=== PATIENT | male | born 1970 | race Caucasian/White ===

== ENCOUNTER 2023-11-28 12:59 | Inpatient (IN) | payer OTHER ==
[~2023-11-28] VITALS: Ht 182.9 cm; Wt 90.7 kg
[2023-11-28] MEDS ORDERED: BISA10SU11 RC (13:22)
[2023-11-28] MEDS ORDERED: LORA-259 PO (13:22)
[2023-11-28] MEDS ORDERED: FLUT12AE IH (13:22)
[2023-11-28] MEDS ORDERED: ACET325C7 PO (13:22)
[2023-11-28] MEDS ORDERED: ARGININE PO (13:22)
[2023-11-28] MEDS ORDERED: MAGN400O6 PO (13:23)
[2023-11-28] MEDS ORDERED: GABA-536 PO (13:23)
[2023-11-28] MEDS ORDERED: METH-806 PO (13:23)
[2023-11-28] MEDS ORDERED: METH-817 PO (13:23)
[2023-11-28] MEDS ORDERED: LIDOCAINE PATCH 5% TD (13:23)
[2023-11-28] MEDS ORDERED: IBUP-1953 PO (13:23)
[2023-11-28] MEDS ORDERED: CRAN450T9 PO (13:23)
[2023-11-28] MEDS ORDERED: MULT-594 PO (13:23)
[2023-11-28] MEDS ORDERED: HYDR-4209 PO (13:23)
[2023-11-28] MEDS ORDERED: NA P133E RC (13:23)
[2023-11-28] MEDS ORDERED: ASCO500C6 PO (13:23)
[2023-11-28] MEDS ORDERED: ONDA4TAB5 PO (13:23)
[2023-11-28] MEDS ORDERED: DOCU100C36 PO (13:23)
[2023-11-28] MEDS ORDERED: HYDROMORPHONE 1 MG/1 ML DISP.SYRIN ONE (13:27)
[2023-11-28] MEDS ORDERED: ONDANSETRON 4 MG/2 ML VIAL ONE (13:27)
[2023-11-28] MEDS: HYDROMORPHONE 1 MG/1 ML DISP.SYRIN IV ONE (13:45)
[2023-11-28] MEDS: IV NORMAL SALINE 1000 ML BAG IV ONE (13:45)
[2023-11-28] MEDS: ONDANSETRON 4 MG/2 ML VIAL IV ONE (13:45)
[2023-11-28 14:14] LABS: BASOPHILS % (AUTO) 0.4 % (0.0-2.0); EOSINOPHILS # (AUTO) 0.2 K/uL (0.0-0.7); EOSINOPHILS % (AUTO) 1.8 % (0.0-7.0); HEMATOCRIT 37.1 % (36.7-47.1); HEMOGLOBIN 12.6 g/dL (12.5-16.3); LYMPHOCYTES # (AUTO) 1.2 K/uL (0.8-4.8); LYMPHOCYTES % (AUTO) 10.4 % (20.5-51.5); MEAN CORPUSCULAR HEMOGLOBIN 31.5 uug (23.8-33.4); MEAN CORPUSCULAR HGB CONC 34 g/dL (32.5-36.3); MEAN CORPUSCULAR VOLUME 92.4 fL (73.0-96.2); MONOCYTES # (AUTO) 0.8 K/uL (0.1-1.30); MONOCYTES % (AUTO) 6.7 % (0.0-11.0); NEUTROPHILS # (AUTO) 9.5 K/uL (1.8-8.9); NEUTROPHILS % (AUTO) 80.7 % (38.5-71.5); PLATELET COUNT (AUTO) 230 K/uL (152-348); RED BLOOD CELL COUNT(AUTO) 4.02 MIL/uL (4.06-5.63); RED CELL DISTRIBUTION WIDTH 13.1 % (12.1-16.2); WHITE BLOOD COUNT (AUTO) 11.8 K/uL (3.6-10.2)
[2023-11-28 14:29] LABS: ALANINE AMINOTRANSFERASE 15 U/L (16-63); ALBUMIN 3.5 g/dL (3.4-5.0); ALKALINE PHOSPHATASE 73 U/L (50-136); ASPARTATE AMINOTRANSFERASE 13 U/L (15-37); BILIRUBIN,DIRECT 0.1 mg/dL (0.0-0.2); BILIRUBIN,TOTAL 0.4 mg/dL (0.2-1.0); CALCIUM 9.1 mg/dL (8.5-10.1); CARBON DIOXIDE 32 mmol/L (21-32); CHLORIDE 105 mmol/L (98-107); CREATININE 0.6 mg/dL (0.6-1.3); GLUCOSE 103 mg/dL (74-106); LIPASE 15 U/L (16-77); POTASSIUM 3.9 mmol/L (3.5-5.1); SODIUM SERUM 141 mmol/L (136-145); TOTAL PROTEIN, SERUM 7.3 g/dL (6.4-8.2); UREA NITROGEN, BLOOD 20 mg/dL (7-18)
[2023-11-28 14:39] LABS: DIFFERENTIAL COMMENT 1
[2023-11-28] MEDS ORDERED: LORAZEPAM 1 MG TABLET PO PRN (16:00)
[2023-11-28] MEDS ORDERED: HYDROCODONE/APAP 5-325MG TABLET PO PRN (16:00)
[2023-11-28] MEDS ORDERED: BISACODYL 10 MG SUPP.RECT RC PRN (16:00)
[2023-11-28] MEDS ORDERED: Medication Not On Formulary EA (Acetaminophen (Tylenol) 650 MG) PO SCH (16:00)
[2023-11-28 16:22] LABS: *BILIRUBIN,URIN NEGATIVE (NEGATIVE); *BLOOD, URINE 2+ (NEGATIVE); *CLARITY,URINE CLEAR (CLEAR); *COLOR,URINE YELLOW (YELLOW); *KETONES,URINE NEGATIVE (NEGATIVE); *PROTEIN,URINE NEGATIVE (NEGATIVE); *UROBILINOGEN,URINE 0.2 E.U./dl (NORMAL); LEUKOCYTE ESTERASE ,URINE 1+ (NEGATIVE); NITRITE, URINE POSITIVE (NEGATIVE); UGLUCOSE NEGATIVE (NEGATIVE)
[2023-11-28 16:35] LABS: BACTERIA,URINE MANY /HPF (NONE SEEN); RBC,URINE 0-3 /HPF (0-3); SQUAMOUS EPITHELIAL CELL,UR FEW /HPF (NONE SEEN)
[2023-11-28 16:36] LABS: CALCIUM OXALATE CRYSTALS,UR RARE /HPF (NONE SEEN)
[2023-11-28] MEDS ORDERED: ACETAMINOPHEN 650 MG/20.3 ML LIQUID UDC PO PRN (17:00)
[2023-11-28] MEDS ORDERED: ARGININE PO SCH (17:00)
[2023-11-28] MEDS: METHOCARBAMOL 500 MG TABLET PO SCH (17:24)
[2023-11-28] MEDS: HYDROMORPHONE 1 MG/1 ML DISP.SYRIN IV PRN (17:24)
[2023-11-28] MEDS: METHADONE HCL 10 MG TABLET PO SCH (17:24)
[2023-11-28] MEDS: DOCUSATE SODIUM 100 MG CAPSULE PO SCH (17:24)
[2023-11-28] MEDS: GABAPENTIN 400 MG CAPSULE PO SCH (17:26)
[2023-11-28] MEDS: IBUPROFEN 400 MG TABLET PO PRN (19:50)
[2023-11-28 20:00] VITALS: BP 134/71; TEMP 98.7; O2SAT 97
[2023-11-28] MEDS ORDERED: CEFTRIAXONE /D5W 50ML IVPB **ER PYXIS IV ONE (21:13)
[2023-11-28] MEDS: CEFTRIAXONE 1 G in IV DEXTROSE 5% 50 ML IV SCH (21:17)
[2023-11-28] MEDS: HYDROMORPHONE 2 MG/1 ML DISP.SYRIN IV PRN (22:34)
[2023-11-29 06:00] VITALS: BP 135/75; TEMP 98.7; O2SAT 98
[2023-11-29] MEDS: PANTOPRAZOLE SODIUM 40 MG TABLET.DR PO SCH (06:10)
[2023-11-29 06:48] LABS: BASOPHILS % (AUTO) 0.4 % (0.0-2.0); EOSINOPHILS # (AUTO) 0.3 K/uL (0.0-0.7); EOSINOPHILS % (AUTO) 2.9 % (0.0-7.0); HEMATOCRIT 34.9 % (36.7-47.1); HEMOGLOBIN 12.2 g/dL (12.5-16.3); LYMPHOCYTES # (AUTO) 2.2 K/uL (0.8-4.8); LYMPHOCYTES % (AUTO) 21.2 % (20.5-51.5); MEAN CORPUSCULAR HEMOGLOBIN 32.1 uug (23.8-33.4); MEAN CORPUSCULAR HGB CONC 35 g/dL (32.5-36.3); MEAN CORPUSCULAR VOLUME 91.7 fL (73.0-96.2); MONOCYTES # (AUTO) 0.8 K/uL (0.1-1.30); MONOCYTES % (AUTO) 7.5 % (0.0-11.0); NEUTROPHILS # (AUTO) 6.9 K/uL (1.8-8.9); PLATELET COUNT (AUTO) 225 K/uL (152-348); RED BLOOD CELL COUNT(AUTO) 3.81 MIL/uL (4.06-5.63); WHITE BLOOD COUNT (AUTO) 10.2 K/uL (3.6-10.2)
[2023-11-29 06:56] LABS: DIFFERENTIAL COMMENT 1
[2023-11-29 07:05] LABS: IRON, SERUM 39 ug/dL (50-175)
[2023-11-29 07:37] LABS: CARBON DIOXIDE 32 mmol/L (21-32); CHLORIDE 106 mmol/L (98-107); CHOLESTEROL 94 mg/dL (<200); CREATININE 0.6 mg/dL (0.6-1.3); GLUCOSE 109 mg/dL (74-106); HDL CHOLESTEROL 37 mg/dL (40-60); MAGNESIUM 1.9 mg/dL (1.8-2.4); PHOSPHOROUS 3.9 mg/dL (2.5-4.9); POTASSIUM 3.6 mmol/L (3.5-5.1); SODIUM SERUM 144 mmol/L (136-145); TRIGLYCERIDES 58 MG/DL (30-150); UREA NITROGEN, BLOOD 14 mg/dL (7-18)
[2023-11-29 08:00] VITALS: BP 119/59; TEMP 98.1; O2SAT 98
[2023-11-29 08:06] LABS: CALCIUM 8.8 mg/dL (8.5-10.1)
[2023-11-29 08:38] LABS: THYROID STIMULATING HORMONE 1.371 mIU/mL (0.358-3.740)
[2023-11-29 08:43] VITALS: BP 115/70; TEMP 98.7; O2SAT 96
[2023-11-29] MEDS: FLUTICASONE/VILANTEROL 1 EACH BLST.W.DEV INH SCH (08:48)
[2023-11-29] MEDS: MULTIVITAMINS,THERAPEUTIC TABLET PO SCH (08:49)
[2023-11-29] MEDS: ASCORBIC ACID 500 MG TABLET PO SCH (08:49)
[2023-11-29] MEDS: ARGININE/GLUTAMINE/CALCIUM BMB 1 EACH POWD.PACK PO SCH (08:54)
[2023-11-29] MEDS ORDERED: Medication Not On Formulary EA (Multivitamins (Multivitamin) 1 EACH) PO SCH (09:00)
[2023-11-29] MEDS ORDERED: Medication Not On Formulary EA (Ascorbic Acid (Vitamin C CAPSULE) 500 MG) PO SCH (09:00)
[2023-11-29] MEDS: HYDROMORPHONE 2 MG/1 ML DISP.SYRIN IV PRN ×2 (10:31→15:38)
[2023-11-29 15:20] VITALS: BP 110/62; TEMP 98.7; O2SAT 96
[2023-11-29 18:37] VITALS: BP 109/69; TEMP 98; O2SAT 99
[2023-11-29 19:22] VITALS: BP 108/50; TEMP 98.1; O2SAT 91
[2023-11-29] MEDS: ONDANSETRON 4 MG/2 ML VIAL IV PRN (23:22)
[2023-11-30] MEDS: FLEET ENEMA 133 ML BOTTLE RC PRN (00:17)
[2023-11-30 06:00] VITALS: BP 123/69; TEMP 99.4; O2SAT 100
[2023-11-30] MEDS: MAGNESIUM HYDROXIDE 30 ML LIQUID UDC PO SCH (08:30)
[2023-11-30 11:58] VITALS: BP 107/57; TEMP 98.6; O2SAT 100
[2023-11-30 12:00] VITALS: BP 107/57; TEMP 98.6; O2SAT 99
[2023-11-30] MEDS ORDERED: HYDR4TAB4 PO (14:12)
[2023-11-30] MEDS ORDERED: CEPH500C2 PO (14:12)
== END 2023-11-30 16:05 | DRG 463 ==
LOC: ER 13:03 → MEDSURG3 14:30
PROVIDERS: ADMIT Internal Medicine; ATTEND Internal Medicine
DX: N39.0 Urinary tract infection, site not specified (principal); G82.20 Paraplegia, unspecified; N13.8 Other obstructive and reflux uropathy; G89.4 Chronic pain syndrome; N40.1 Benign prostatic hyperplasia with lower urinary tract symptoms; R07.9 Chest pain, unspecified; S24.103S Unspecified injury at T7-T10 level of thoracic spinal cord, sequela; X95.9XXS Assault by unspecified firearm discharge, sequela; G62.9 Polyneuropathy, unspecified; Z86.73 Personal history of transient ischemic attack (TIA), and cerebral infarction without residual deficits; Z87.891 Personal history of nicotine dependence; Z85.048 Personal history of other malignant neoplasm of rectum, rectosigmoid junction, and anus; N31.9 Neuromuscular dysfunction of bladder, unspecified; F11.20 Opioid dependence, uncomplicated; Z90.49 Acquired absence of other specified parts of digestive tract; Z86.59 Personal history of other mental and behavioral disorders; G40.909 Epilepsy, unspecified, not intractable, without status epilepticus; Z93.6 Other artificial openings of urinary tract status
CPT/HCPCS: 36415; 71045; 72131; 83550; 83690; 83735; 84100; 84443; 85025; 93005; A4606; A4663; A6209; A6213; G0378; J0696; J1170; J2405; J7040

== ENCOUNTER 2025-02-03 17:18 | Inpatient (IN) | payer OTHER ==
[~2025-02-03] VITALS: Ht 182.9 cm; Wt 77.1 kg
[~2025-02-03 17:18] MED LIST: ACET325C7 PO; ARGININE PO; ASCO500C6 PO; BISA10SU11 RC; CEPH500C2 PO; CRAN450T9 PO; DOCU100C36 PO; FLUT12AE IH; GABA-536 PO; HYDR4TAB4 PO; IBUP-1953 PO; LIDOCAINE PATCH 5% TD; LORA-259 PO; MAGN400O6 PO; METH-806 PO; METH-817 PO; MULT-594 PO; NA P133E RC; ONDA4TAB5 PO
[2025-02-03] MEDS: IV NORMAL SALINE 1000 ML BAG IV ONE (17:30)
[2025-02-03 17:49] LABS: *BILIRUBIN,URIN NEGATIVE (NEGATIVE); *BLOOD, URINE NEGATIVE (NEGATIVE); *CLARITY,URINE CLEAR (CLEAR); *COLOR,URINE YELLOW (YELLOW); *KETONES,URINE NEGATIVE (NEGATIVE); *PROTEIN,URINE NEGATIVE (NEGATIVE); LEUKOCYTE ESTERASE ,URINE 1+ (NEGATIVE); NITRITE, URINE POSITIVE (NEGATIVE); PH,URINE 5.5 (5.0-8.0); UGLUCOSE NEGATIVE (NEGATIVE)
[2025-02-03 17:52] LABS: BACTERIA,URINE FEW /HPF (NONE SEEN); RBC,URINE 0-3 /HPF (0-3)
[2025-02-03 17:55] LABS: CALCIUM 9.5 mg/dL (8.5-10.1); CARBON DIOXIDE 12 mmol/L (21-32); CHLORIDE 105 mmol/L (98-107); CREATININE 2.2 mg/dL (0.6-1.3); GLUCOSE 327 mg/dL (74-106); SODIUM SERUM 144 mmol/L (136-145); UREA NITROGEN, BLOOD 32 mg/dL (7-18)
[2025-02-03 18:01] LABS: BASOPHILS # (AUTO) 0.1 K/UL (0.0-0.2); BASOPHILS % (AUTO) 0.3 % (0.0-2.0); EOSINOPHILS # (AUTO) 0.1 K/uL (0.0-0.7); EOSINOPHILS % (AUTO) 0.2 % (0.0-7.0); HEMATOCRIT 43.2 % (36.7-47.1); HEMOGLOBIN 13.6 g/dL (12.5-16.3); LYMPHOCYTES # (AUTO) 2.4 K/uL (0.8-4.8); MEAN CORPUSCULAR HEMOGLOBIN 30.9 uug (23.8-33.4); MEAN CORPUSCULAR HGB CONC 32 g/dL (32.5-36.3); MEAN CORPUSCULAR VOLUME 97.9 fL (73.0-96.2); MONOCYTES # (AUTO) 2.1 K/uL (0.1-1.30); MONOCYTES % (AUTO) 7.1 % (0.0-11.0); NEUTROPHILS # (AUTO) 24.7 K/uL (1.8-8.9); NEUTROPHILS % (AUTO) 84.4 % (38.5-71.5); PLATELET COUNT (AUTO) 163 K/uL (152-348); RED BLOOD CELL COUNT(AUTO) 4.41 MIL/uL (4.06-5.63); RED CELL DISTRIBUTION WIDTH 14.5 % (12.1-16.2); WHITE BLOOD COUNT (AUTO) 29.3 K/uL (3.6-10.2)
[2025-02-03 18:08] LABS: POTASSIUM 2.5 mmol/L (3.5-5.1)
[2025-02-03 18:13] LABS: ALANINE AMINOTRANSFERASE 32 U/L (16-63); ALBUMIN 3.3 g/dL (3.4-5.0); ALKALINE PHOSPHATASE 69 U/L (50-136); ASPARTATE AMINOTRANSFERASE 79 U/L (15-37); BILIRUBIN,DIRECT 0.1 mg/dL (0.0-0.2); BILIRUBIN,TOTAL 0.6 mg/dL (0.2-1.0); TOTAL PROTEIN, SERUM 7.2 g/dL (6.4-8.2)
[2025-02-03] MEDS: POTASSIUM BICARBONATE/CIT AC 25 MEQ TABLET.EFF MC ONE (18:15)
[2025-02-03] MEDS: POTASSIUM CHLORIDE 50 ML IV SCH (18:15)
[2025-02-03] MEDS ORDERED: SUCCINYLCHOLINE CHLORIDE 200 MG/10 ML VIAL ONE (18:20)
[2025-02-03] MEDS ORDERED: EPINEPHRINE 1:10,000 1 MG/10 ML DISP.SYRIN ONE ×2 (18:20→23:18)
[2025-02-03 18:21] LABS: DIFFERENTIAL COMMENT 1
[2025-02-03] MEDS ORDERED: POTASSIUM BICARBONATE/CIT AC 25 MEQ TABLET.EFF ONE (18:22)
[2025-02-03] MEDS: MAGNESIUM SULFATE/D5W 100 ML IV SCH (18:25)
[2025-02-03] MEDS ORDERED: MAGNESIUM SULFATE/D5W 300 ML ONE (18:27)
[2025-02-03] MEDS ORDERED: POTASSIUM CHLORIDE 50 ML ONE (18:36)
[2025-02-03 18:39] LABS: ABG HCO3 3.5 mmol/L (21.0-28.0); ABG PCO2 19.9 mmHg (35.0-48.0); ABG PH 6.862 (7.350-7.450); ABG PO2 116.4 mmHg (83.0-108.0); ABG SITE RIGHT FEMORAL; ABG TOTAL HEMOGLOBIN 12.7 G/dL (13.5-17.5); AaDO2 94.1 mmHg; COHb 0.5 % (0.5-1.5); MetHb 0.3 % (0.0-1.5); O2Hb 94.3 % (94.0-98.0); VT, ABG 450 mL
[2025-02-03] MEDS: NOREPINEPHRINE 8MG/NS 250ML 250 ML IV PRN (18:49)
[2025-02-03] MEDS ORDERED: NOREPINEPHRINE 8MG/NS 250ML 250 ML IV ONE ×3 (20:04→23:02)
[2025-02-03] MEDS ORDERED: CEFTRIAXONE /D5W 50ML IVPB **ER PYXIS IV ONE (20:19)
[2025-02-03] MEDS ORDERED: ONDANSETRON 4 MG/2 ML VIAL IV PRN (20:30)
[2025-02-03] MEDS ORDERED: REMEDY ESSENTIAL ZINC PASTE 113 GM TP PRN (20:30)
[2025-02-03] MEDS ORDERED: ACETAMINOPHEN 650 MG SUPP.RECT RC PRN (20:30)
[2025-02-03] MEDS: CEFTRIAXONE 1 G in IV DEXTROSE 5% 50 ML IV ONE (20:30)
[2025-02-03 20:40] LABS: CALCIUM 8.9 mg/dL (8.5-10.1); CREATININE 2.1 mg/dL (0.6-1.3); POTASSIUM 4.2 mmol/L (3.5-5.1)
[2025-02-03] MEDS ORDERED: ALBUTEROL SULFATE 2.5 MG/3 ML NEBU NEB PRN (20:45)
[2025-02-03] MEDS ORDERED: IPRATROPIUM BROMIDE 0.5 MG/2.5 ML NEBU NEB PRN (20:45)
[2025-02-03] MEDS ORDERED: SODIUM BICARBONATE 8.4% 50 MEQ/50 ML DISP.SYRIN IV ONE (20:53)
[2025-02-03] MEDS: SODIUM BICARBONATE 8.4% 50 MEQ in IV 1/2NS 1000 ML 1,000 ML IV SCH (21:00)
[2025-02-03] MEDS: HEPARIN SODIUM,PORCINE 5,000 UNITS/ML VIAL SQ SCH (21:00)
[2025-02-03] MEDS ORDERED: PHENYLEPHRINE 10 MG/1 ML VIAL ONE (21:38)
[2025-02-03] MEDS: PHENYLEPHRINE IV 50 MG in IV NORMAL SALINE 245 ML IV PRN (21:45)
[2025-02-03] MEDS ORDERED: CEFEPIME HCL 1 G in IV DEXTROSE 5% 50 ML IV SCH (22:00)
[2025-02-03] MEDS ORDERED: CEFEPIME HCL 1 G VIAL ONE (22:00)
[2025-02-03] MEDS: CEFEPIME HCL 1 G in IV DEXTROSE 5% 50 ML IV SCH (22:15)
[2025-02-03] MEDS ORDERED: VANCOMYCIN IV 200 ML ONE (22:47)
[2025-02-03] MEDS: VANCOMYCIN IV 1,000 MG in IV NORMAL SALINE 250 ML IV ONE (22:50)
[2025-02-03] MEDS ORDERED: EPINEPHRINE-PF 1:1000 1 MG/ML AMPUL/VIAL ONE (23:25)
[2025-02-03] MEDS: EPINEPHRINE 5 MG in IV NORMAL SALINE 245 ML IV PRN (23:30)
[2025-02-04] VITALS (33 sets, daily range): BP systolic 54–179; BP diastolic 31–125; TEMP 98–98.2; O2SAT 80–100
[2025-02-04] MEDS ORDERED: PHENYLEPHRINE 10 MG/1 ML VIAL ONE ×3 (00:40→07:18)
[2025-02-04] MEDS ORDERED: NOREPINEPHRINE 8MG/NS 250ML 250 ML IV ONE ×5 (00:52→07:22)
[2025-02-04] MEDS ORDERED: EPINEPHRINE-PF 1:1000 1 MG/ML AMPUL/VIAL ONE ×4 (01:02→03:41)
[2025-02-04] MEDS ORDERED: EPINEPHRINE 1:10,000 1 MG/10 ML DISP.SYRIN ONE (01:24)
[2025-02-04] MEDS ORDERED: SODIUM BICARBONATE 8.4% 50 MEQ/50 ML DISP.SYRIN IV ONE (01:29)
[2025-02-04] MEDS ORDERED: VASOPRESSIN 20 UNIT/ML VIAL ONE (02:09)
[2025-02-04] MEDS: HYDROCORTISONE SOD SUCCINATE 100 MG/2 ML VIAL IV ONE (02:20)
[2025-02-04] MEDS: VASOPRESSIN 40 UNIT in IV NORMAL SALINE 40 ML IV PRN (02:38)
[2025-02-04] MEDS: SODIUM BICARBONATE 8.4% 150 MEQ in IV D5W 1000ML 1,000 ML IV PRN (02:40)
[2025-02-04] MEDS ORDERED: EPINEPHRINE 10 MG in IV NORMAL SALINE 240 ML IV PRN (03:30)
[2025-02-04 05:49] LABS: ABG BASE EXCESS -19.8 mmol/L (-2.0-3.0); ABG HCO3 8.5 mmol/L (21.0-28.0); ABG PCO2 28.1 mmHg (35.0-48.0); ABG PH 7.098 (7.350-7.450); ABG SITE LEFT RADIAL; ABG TOTAL HEMOGLOBIN 13.2 G/dL (13.5-17.5); COHb 0.4 % (0.5-1.5); MetHb 0.3 % (0.0-1.5); O2Hb 98.7 % (94.0-98.0); VT, ABG 450 mL
[2025-02-04] MEDS ORDERED: CEFEPIME HCL 1 G VIAL ONE (07:28)
[2025-02-04] MEDS ORDERED: PHENYLEPHRINE IV 100 MG in IV NORMAL SALINE 240 ML IV PRN (07:30)
[2025-02-04] MEDS ORDERED: NOREPINEPHRINE BITARTRATE 32 MG in IV NORMAL SALINE 218 ML IV PRN (07:30)
[2025-02-04] MEDS: PANTOPRAZOLE SODIUM 40 MG VIAL IV SCH (09:00)
[2025-02-04 09:07] LABS: BASOPHILS % (AUTO) 0.2 % (0.0-2.0); EOSINOPHILS # (AUTO) 0.1 K/uL (0.0-0.7); EOSINOPHILS % (AUTO) 0.4 % (0.0-7.0); LYMPHOCYTES # (AUTO) 1.2 K/uL (0.8-4.8); LYMPHOCYTES % (AUTO) 3.9 % (20.5-51.5); MEAN CORPUSCULAR HEMOGLOBIN 31.1 uug (23.8-33.4); MEAN CORPUSCULAR HGB CONC 33 g/dL (32.5-36.3); MONOCYTES # (AUTO) 1.2 K/uL (0.1-1.30); MONOCYTES % (AUTO) 3.9 % (0.0-11.0); NEUTROPHILS # (AUTO) 28.1 K/uL (1.8-8.9); NEUTROPHILS % (AUTO) 91.6 % (38.5-71.5); PLATELET COUNT (AUTO) 122 K/uL (152-348); RED BLOOD CELL COUNT(AUTO) 3.85 MIL/uL (4.06-5.63); RED CELL DISTRIBUTION WIDTH 14.4 % (12.1-16.2)
[2025-02-04 09:36] LABS: ALBUMIN 1.8 g/dL (3.4-5.0); ALKALINE PHOSPHATASE 63 U/L (50-136); BILIRUBIN,DIRECT 0.2 mg/dL (0.0-0.2); BILIRUBIN,TOTAL 0.5 mg/dL (0.2-1.0); CARBON DIOXIDE 12 mmol/L (21-32); CHLORIDE 113 mmol/L (98-107); CREATININE 2.8 mg/dL (0.6-1.3); GLUCOSE 229 mg/dL (74-106); MAGNESIUM 2.7 mg/dL (1.8-2.4); NT-PRO BNP 12653 pg/mL (0-125); POTASSIUM 3.9 mmol/L (3.5-5.1); SODIUM SERUM 146 mmol/L (136-145); TOTAL PROTEIN, SERUM 4.4 g/dL (6.4-8.2); UREA NITROGEN, BLOOD 41 mg/dL (7-18)
[2025-02-04 09:44] LABS: DIFFERENTIAL COMMENT 1; WHITE BLOOD COUNT (AUTO) 30.7 K/uL (3.6-10.2)
[2025-02-04 09:52] LABS: ASPARTATE AMINOTRANSFERASE 2520 U/L (15-37)
[2025-02-04 09:53] LABS: ALANINE AMINOTRANSFERASE 1725 U/L (16-63)
[2025-02-04 10:30] LABS: ABG BASE EXCESS -20.3 mmol/L (-2.0-3.0); ABG HCO3 9.7 mmol/L (21.0-28.0); ABG PCO2 37.4 mmHg (35.0-48.0); ABG PO2 261.1 mmHg (83.0-108.0); ABG SITE LEFT RADIAL; ABG TOTAL HEMOGLOBIN 12.8 G/dL (13.5-17.5); AaDO2 99.3 mmHg; COHb 0.5 % (0.5-1.5); MetHb 0.3 % (0.0-1.5); O2Hb 98.9 % (94.0-98.0); VT, ABG 500 mL
[2025-02-04] MEDS: HYDROCORTISONE SOD SUCCINATE 100 MG/2 ML VIAL IV SCH (10:30)
[2025-02-04] MEDS: SODIUM BICARBONATE 8.4% 150 MEQ in IV D5W 1000ML 1,000 ML IV SCH (12:00)
[2025-02-04] MEDS: VANCOMYCIN IV 500 MG in IV DEXTROSE 5% 100 ML IV ONE (12:30)
[2025-02-04] MEDS ORDERED: HYDROCORTISONE SOD SUCCINATE 100 MG/2 ML VIAL IV ONE (13:07)
[2025-02-04] MEDS ORDERED: HEPARIN SODIUM,PORCINE 5,000 UNITS/ML VIAL ONE (13:08)
[2025-02-04] MEDS ORDERED: PANTOPRAZOLE SODIUM 40 MG VIAL ONE (13:08)
[2025-02-04] MEDS ORDERED: CHOL10005 PO (14:09)
[2025-02-04] MEDS ORDERED: FLUT16SP BNOSTRILS (14:11)
[2025-02-04] MEDS ORDERED: HYDR4TAB6 PO (14:12)
[2025-02-04] MEDS ORDERED: POLY17PO4 PO (14:16)
[2025-02-04] MEDS ORDERED: MULT-213 PO (14:17)
[2025-02-04] MEDS ORDERED: MORPHINE SULFATE 2 MG/1 ML DISP.SYRIN IV PRN (14:45)
[2025-02-04 14:47] LABS: ABG BASE EXCESS -15.6 mmol/L (-2.0-3.0); ABG HCO3 11.5 mmol/L (21.0-28.0); ABG PCO2 31.7 mmHg (35.0-48.0); ABG PH 7.178 (7.350-7.450); ABG PO2 376.2 mmHg (83.0-108.0); ABG SITE LEFT RADIAL; ABG TOTAL HEMOGLOBIN 13.2 G/dL (13.5-17.5); AaDO2 99.7 mmHg; COHb 0.1 % (0.5-1.5); MetHb 0.2 % (0.0-1.5); O2Hb 99.5 % (94.0-98.0); VT, ABG 500 mL
[2025-02-04 15:41] LABS: BAND % (MANUAL) 31 % (0-10); LYMPHOCYTES % (MANUAL) 6 % (20-40); MONOCYTES % (MANUAL) 4 % (2-10); NEUTROPHILS % (MANUAL) 52 % (42-75)
[2025-02-04 15:42] LABS: METAMYELOCYTES % 7 % (0-1); PLATELET ESTIMATE DECREASED
[2025-02-04] MEDS ORDERED: CEFEPIME HCL 1 G in IV DEXTROSE 5% 50 ML IV SCH (20:00)
== END 2025-02-04 19:48 | DRG 720 ==
LOC: ER 17:18 → CCU 20:45 → ICU IN 02-04 08:20 → UNDOADMIN 02-04 08:20 → ICU IN 02-04 16:30 → CCU 02-04 16:30 → UNDODISIN 02-04 19:48
PROVIDERS: ADMIT Nurse Practitioner Family; ATTEND Nurse Practitioner Family
PROC: 5A12012 Performance of Cardiac Output, Single, Manual (ICD-10-PCS; principal; 2025-02-03)
PROC: 5A1935Z Respiratory Ventilation, Less than 24 Consecutive Hours (ICD-10-PCS; principal; 2025-02-03)
PROC: 0DH673Z Insertion of Infusion Device into Stomach, Via Natural or Artificial Opening (ICD-10-PCS; principal; 2025-02-03)
PROC: 0BH18EZ Insertion of Endotracheal Airway into Trachea, Via Natural or Artificial Opening Endoscopic (ICD-10-PCS; principal; 2025-02-03)
PROC: 06HY33Z Insertion of Infusion Device into Lower Vein, Percutaneous Approach (ICD-10-PCS; principal; 2025-02-03)
DX: A41.9 Sepsis, unspecified organism (principal); J96.01 Acute respiratory failure with hypoxia; I46.9 Cardiac arrest, cause unspecified; N17.0 Acute kidney failure with tubular necrosis; J69.0 Pneumonitis due to inhalation of food and vomit; G92.8 Other toxic encephalopathy; I21.4 Non-ST elevation (NSTEMI) myocardial infarction; L89.153 Pressure ulcer of sacral region, stage 3; Z66 Do not resuscitate; Z51.5 Encounter for palliative care; D68.59 Other primary thrombophilia; E87.20 Acidosis, unspecified; R57.9 Shock, unspecified; E43 Unspecified severe protein-calorie malnutrition; E44.0 Moderate protein-calorie malnutrition; G82.20 Paraplegia, unspecified; E86.0 Dehydration; E87.6 Hypokalemia; G89.4 Chronic pain syndrome; N40.1 Benign prostatic hyperplasia with lower urinary tract symptoms; F41.9 Anxiety disorder, unspecified; I47.10 Supraventricular tachycardia, unspecified; D64.9 Anemia, unspecified; E88.09 Other disorders of plasma-protein metabolism, not elsewhere classified; G40.909 Epilepsy, unspecified, not intractable, without status epilepticus; N39.0 Urinary tract infection, site not specified; R73.9 Hyperglycemia, unspecified; F11.20 Opioid dependence, uncomplicated; I21.A1 Myocardial infarction type 2; T65.91XS Toxic effect of unspecified substance, accidental (unintentional), sequela; I42.7 Cardiomyopathy due to drug and external agent; N31.9 Neuromuscular dysfunction of bladder, unspecified; Z68.23 Body mass index [BMI] 23.0-23.9, adult; I50.23 Acute on chronic systolic (congestive) heart failure; I25.10 Atherosclerotic heart disease of native coronary artery without angina pectoris; F32.A Depression, unspecified; T14.8XXS Other injury of unspecified body region, sequela; W34.00XS Accidental discharge from unspecified firearms or gun, sequela; Z93.6 Other artificial openings of urinary tract status; R65.20 Severe sepsis without septic shock
CPT/HCPCS: 36415; 36600; 71045; 82533; 82803; 83605; 83735; 84100; 84484; 85025; 85730; 87040; 87086; 92950; 93005; 93307; 94002; 94003; 94760; A4606; G0378; J0171; J0330; J0692; J0696; J1644; J1720; J2470; J3370; J3475; J3480; J3490; J7040; J7070